=== PATIENT | female | born 1975 | race Two or more races ===

== ENCOUNTER 2023-01-13 11:36 | Emergency (ER) | payer OTHER ==
[~2023-01-13] VITALS: Ht 165.1 cm; Wt 86.2 kg
[~2023-01-13 11:36] MED LIST: AMBIEN10 MG; COUMADIN5 MG; COZAAR50 MG
[2023-01-13] MEDS ORDERED: SYNTHROID50 MCG PO (12:48)
== END 2023-01-13 20:47 | disposition home or self-care (01) ==
LOC: ER 11:36
DX: R10.32 Left lower quadrant pain (principal); I10 Essential (primary) hypertension; C54.1 Malignant neoplasm of endometrium; K76.0 Fatty (change of) liver, not elsewhere classified